=== PATIENT | female | born 1980 | race Caucasian/White ===

== ENCOUNTER 2016-09-15 07:15 | Emergency (ER) | payer MEDICAID ==
[~2016-09-15] VITALS: Wt 66.0 kg
[~2016-09-15 07:15] MED LIST: PREN1TAB49
[2016-09-15] MEDS ORDERED: FLUORESCEIN STRIP RIGHT EYE ONE (08:00)
[2016-09-15] MEDS ORDERED: TETRACAINE 0.5% 15 ML OPH RIGHT EYE ONE (08:00)
[2016-09-15] MEDS ORDERED: OFLO5DRO46 RIGHT EYE (08:17)
[2016-09-15 08:22] VITALS: BP 128/60; PULSE 60; RESP 16; TEMP 96.8
--- NOTE | 2016-09-15 12:15 | ERD ---
DATE OF SERVICE: 09/15/2016 HISTORY OF PRESENT ILLNESS: The patient is a 36-year-old female complaining of right eye irritation and redness that started yesterday. She does not feel that anything got in her eye. She does not wear contact lenses or glasses. She has no visual deficit. She has been putting drops in her eyes for dry eyes with no alleviation of symptoms. She states that her eyes feel like they are burning a nd they have been progressively watering. There is no purulent discharge. When she woke up this mo rning her eyes were not glued shut. PAST MEDICAL HISTORY: Denies medical problems. ALLERGIES: DENIES ALLERGIES TO MEDICATIONS SOCIAL HISTORY: Denies. REVIEW OF SYSTEMS: A 12-point review of systems was done. Refer to HPI for positives, all other sy stems negative. PHYSICAL EXAMINATION VITAL SIGNS: Temperature is 97.9, pulse 88, blood pressure 128/60, respiratory rate 21, O2 saturati on 99% on room air. Pain intensity 8/10. GENERAL: The patient is well-appearing, well-nourished, no acute distress. HEENT: There is some clear watery discharge from the right eye with no purulent discharge. No inje ction of the sclera. Pupils equal, round and reactive to light. No pain with ocular movements. Ocu lar movements are intact. NECK: C-spine is soft and supple. There is no meningismus. There is no cervical lymphadenopathy. No JVD. No bruits. No goiter. CHEST: Clear to auscultation bilaterally. There are no rales, wheezes or rhonchi. HEART: Regular rate and rhythm. No murmurs, clicks, rubs or gallops. No S3 or S4. ABDOMEN: Soft, nontender and nondistended. Good bowel sounds. No rebound or guarding. No gross cedric tonitis. No gross organomegaly or masses. No Manzanares sign or McBurney point tenderness. SKIN: There is no apparent rash or petechia. The skin is warm and dry. EMERGENCY ROOM COURSE: Visual acuity was obtained, patient's right eye was 30/20, left eye 20/20, b ilateral 20/20 with no use of corrective lenses. Fluorescein stain was applied to the right eye whi ch alleviated the patient's pain. There is a questionable area of uptake noted on the medial aspect of the right eye but no foreign bodies seen. No dendritic lesions, no lacerations or globe rupture s. DIAGNOSIS: Right eye irritation, possible abrasion. MEDICAL DECISION MAKING: I have low suspicion for globe rupture, low suspicion for acute angle glau coma. There is no smokiness or haziness noted over the pupil. There is no injection of the sclerae. I have low suspicion for globe rupture for retained foreign bodies, and low suspicion for corneal u lceration. DISCHARGE: The patient is discharged stable. Patient is given a prescription for Ocuflox and told to follow up with primary care within 1 to 2 days for reevaluation. Patient was told if symptoms pr ogress or worsen to return to the ER. All other questions answered at time of discharge. Discharge summary given at the time of departure. Patient understood and complied with plan. Dictated By: JB MICHAEL for ASHIA LAM/NTS Conf#: [id number] DID#: [id number]
== END 2016-09-15 08:17 | disposition home or self-care (01) ==
LOC: FTE 07:15
DX: H57.8 Other specified disorders of eye and adnexa (principal)
CPT/HCPCS: Z7502; Z7610; 99283